=== PATIENT | female | born 1940 | race Caucasian/White ===

== ENCOUNTER 2020-09-25 10:30 | Emergency (ER) | payer MEDICARE, MEDICAID, SELFPAY ==
[2020-09-25 11:39] VITALS: BP 120/54; PULSE 76; RESP 15; TEMP 36.6; O2SAT 99; BMI 29.2
[2020-09-25 11:59] VITALS: BP 120/54; PULSE 76; RESP 15; TEMP 36.6; O2SAT 99
[2020-09-25 12:03] LABS: Glucose Urine UA NEG (NEG); Leukocyte Esterase Urine 3+ (NEG); Nitrite Urine NEG (NEG); Specific Gravity - Urine 1.025 (1.005-1.025); UACC Culture Trigger YES; Urine Blood 3+ (NEG); Urine Ketones NEG (NEG); Urine Protein TRACE MG/DL (NEG-TRACE)
[2020-09-25 12:04] LABS: Appearance Urine CLOUDY; Color Urine YELLOW
--- NOTE | 2020-09-25 12:11 | XR_ITS ---
EXAMINATION: XR CHEST CLINICAL INFORMATION: Acute mental status change COMPARISON: Previous chest x-ray most recent February 2020 TECHNIQUE: Frontal view of the chest was obtained. FINDINGS: The cardiac and mediastinal contours are stable. The lungs are clear. There is no pleural effusion or pneumothorax. There are degenerative changes of the spine. XR/XR chest 1V IMPRESSION: No evidence for acute disease in the chest.
--- NOTE | 2020-09-25 12:11 | ECG_ITS ---
Test Reason : WEAKNESS Blood Pressure : / mmHG Vent. Rate : 065 BPM Atrial Rate : 065 BPM P-R Int : 150 ms QRS Dur : 072 ms QT Int : 418 ms P-R-T Axes : 049 004 037 degrees QTc Int : 434 ms Normal sinus rhythm Normal EKG When compared with ECG of 13-FEB-2020 18:38, No significant change was found Referred By: Layla Dillon Electronically Signed By:WOO BERRY
--- NOTE | 2020-09-25 12:12 | CT_ITS ---
EXAMINATION: CT HEAD WITHOUT CONTRAST CLINICAL INFORMATION: Acute mental status change COMPARISON: Previous head CT scans most recent April 2019 TECHNIQUE: Contiguous axial imaging was performed from the skull base to vertex without intravenous administration of contrast. This CT examination was performed using dose optimization techniques as appropriate, variously including the following: *Automated exposure control *Adjustment of mA and/or kV according to patient size (this includes techniques or standardized protocols for targeted exams where dose is matched to indication/reason for exam; i.e. extremities or head) *Use of iterative reconstruction technique DLP: 672 mGy-cm FINDINGS: There is no evidence of an extra-axial collection. There is no evidence of intra-axial or extra-axial hemorrhage. Ventricles and extra-axial CSF spaces are prominent suggestive of generalized atrophy. There is nonspecific periventricular white matter disease. No mass, mass effect or infarct is seen. There are postsurgical changes to the left maxillary sinus and left nasal cavity. There is cortical thickening of the wall the left maxillary sinus and some adjacent soft tissue thickening. These changes appear similar to 2019 exam. Visualized paranasal sinuses, mastoid air cells and middle ears are otherwise clear. CT/CT head/brain wo con IMPRESSION: No acute findings. Generalized atrophy and nonspecific periventricular white matter disease. Postsurgical change to the left maxillary sinus. Findings are similar to previous exam.
[2020-09-25 12:15] LABS: Bacteria Urine 4+ /LPF; WBC Urine TNTC /HPF (0-4)
--- NOTE | 2020-09-25 12:19 | ED.FEMALEGU ---
HPI - Female Genitourinary General Chief complaint: Urogenital-Female Stated complaint: ?uti Time Seen by Provider: 09/25/20 11:47 Source: family History of Present Illness HPI Narrative: 80-year-old female with a past medical history of Alzheimer's, GERD, HTN, HLD, brought to the ED by daughter for AMS/increased agitation and dysuria x a few days. Per daughter patient is screaming in pain during urination since yesterday, has been aggressive towards family. Denies fever, vomiting/diarrhea, cough. History limited secondary to patient's dementia MD elicited complaint: UTI Related Data Previous Rx's Medication Instructions Recorded cefuroxime axetil 250 mg PO BID 7 Days #14 tab 09/25/20 phenazopyridine [Pyridium] 200 mg PO TID PRN #6 tab 09/25/20 Allergies Allergy/AdvReac Type Severity Reaction Status Date / Time No Known Allergies Allergy Unverified 05/21/20 15:42 [No Known Allergies*] dirt and dust Allergy Unknown Uncoded 02/27/18 00:00 maple trees Allergy Unknown Uncoded 02/27/18 00:00 milk Allergy Unknown Uncoded 02/27/18 00:00 Review of Systems Review of Systems: Constitutional: No Fever, No Chills Respiratory: No Cough Genitourinary:+Dysuria,+ Urgency Neuro: + agitated/AMS ROS limited secondary to patient's dementia Yes Unobtainable due to mental status Neurologic: Reports confusion (Baseline dementia) Psychiatric: Psychiatric: Reports confusion (Baseline dementia) [facility], [facility] Past Medical History Attestation statement: The following information was validated with the patient. Medical History (Updated 09/25/20 @ 14:03 by LUIS CARLOS [place]) Alzheimer disease Dementia GERD (gastroesophageal reflux disease) High cholesterol HTN (hypertension) Social History Social History Alcohol intake: never Smoking Status: Never smoker Use of substances other than those prescribed or required for medical reasons: No Advance Directives: No Advance Directives Information Provided: No Physical Exam Vital Signs: Vital Signs: Last Vital Signs Temp 97.8 F 09/25/20 13:27 Pulse 82 09/25/20 13:27 Resp 18 09/25/20 13:27 BP 130/56 L 09/25/20 13:27 Pulse Ox 100 09/25/20 13:27 Body Mass Index 29.2 Const: General: cooperative, healthy appearing and confusion (Baseline dementia) Orientation/consciousness: confusion (Baseline dementia) Limitations: no limitations HENMT: Head: Yes normal to inspection Ears: hearing grossly normal bilaterally General nose exam: Normal external nose present Face and sinus: Yes normal facial exam Eyes: General: appearance normal, both eyes and all related structures Pupils: Equal, round and reactive pupils present EOM: EOMs intact bilaterally Neck: Neck: Yes normal visual inspection and Yes no meningeal signs Resp: Effort & Inspection: normal respiratory effort Auscultation: clear to auscultation bilaterally, no rales, no rhonchi and no wheezes Cardio: Rate: regular rate Heart sounds: S1 normal heart sound present and S2 normal heart sound present GI: Inspection: Yes normal to inspection Palpation (GI): Soft to palpation, nontender, no guarding and not rigid : General: Yes no CVA tenderness Back/Spine/Pelvis: Back: no CVA tenderness Skin: Rashes: no rashes Wounds: no wounds Neuro: Other: Does not follow all commands (baseline) General: tone normal, no meningeal signs and confusion (Baseline dementia) Cranial nerves: Yes Equal, round and reactive pupils present Gait exam (Neuro): Normal gait present (Ambulates with walker) Extrem: General: Yes normal to inspection Course Course Course Narrative: BUN elevated chronically, labs otherwise unremarkable, influenza/RSV/COVID-19 negative. UA is infected CT head/brain wo con IMPRESSION: No acute findings. Generalized atrophy and nonspecific periventricular white matter disease. Postsurgical change to the left maxillary sinus. Findings are similar to previous exam. XR chest 1V IMPRESSION: No evidence for acute disease in the chest >> results discussed with patient's daughter. Plan to DC home with Ceftin and close PCP follow-up. First dose was given in the ED MDM - Female Genitourinary MDM Narrative Medical decision making narrative: 80-year-old female with a past medical history of Alzheimer's, GERD, HTN, HLD, brought to the ED by daughter for AMS/increased agitation and dysuria x a few days. On exam VSS, NAD/nontoxic appearing. Concern for UTI/other infectious etiology. Rule out ICH/mass. Low concern for severe sepsis. Plan: EKG, labs, UA, CXR, head CT, re-evaluated Lab Data Result diagrams: 09/25/20 12:35 09/25/20 12:35 Labs: Lab Results 09/25/20 09/25/20 09/25/20 Range/Units 11:56 12:35 12:35 WBC 7.2 (4.8-10.8) X10*3/uL RBC 4.85 (4.20-5.50) X10*6/uL Hgb 14.2 (12.0-16.0) g/dl Hct 44.0 (37-47) % MCV 90.7 (80-98) fL MCH 29.3 (27.0-33.0) pg MCHC 32.3 (31.0-35.0) g/dl RDW 13.3 (11.0-16.0) % Plt Count 223 (160-400) X10*3/uL MPV Not Reportable Immature Gran % (Auto) 0.3 (0.0-0.4) % Neut % (Auto) 70.4 (45-73) % Lymph % (Auto) 19.3 L (20-40) % [place] % (Auto) 8.1 (2-11) % Eos % (Auto) 1.3 (0-4) % Baso % (Auto) 0.6 (0-2) % Lymph # (Auto) 1.4 (1.2-4.9) X10*3/uL [place] # (Auto) 0.6 (0.1-1.2) X10*3/uL Eos # (Auto) 0.1 (0.0-0.4) X10*3/uL Baso # (Auto) 0.0 (0.0-0.2) X10*3/uL Abs Immat Gran (auto) 0.02 (0.00-0.03) X10*3/uL Absolute Neuts (auto) 5.1 (2.0-8.3) X10*3/uL Absolute Nucleated RBC 0.000 (0.0-0.012) X10*3/uL Nucleated RBC % (auto) 0.0 (0.0-0.2) /100WBC Smear Tech's Comments VERIFIED Hold Blue Top SEE NOTE Sodium (135-145) mmol/L Potassium (3.3-5.1) mmol/l Chloride (96-108) mmol/L Carbon Dioxide (22-29) mmol/L Anion Gap (12-20) BUN (9-16) mg/dL Creatinine (0.5-1.4) mg/dL Estim Creat Clear Calc Estimated GFR Random Glucose (60-115) mg/dL Calcium (8.4-10.2) mg/dL Magnesium (1.6-2.6) mg/dL Total Bilirubin (0.0-1.0) mg/dL Direct Bilirubin (0.0-0.5) mg/dL AST (5-31) U/L ALT (0-31) U/L Alkaline Phosphatase (39-117) U/L Total Protein (6.5-8.0) g/dL Albumin (3.5-5.0) g/dL Lipase (8-78) U/L Urine Color YELLOW Urine Appearance CLOUDY Urine pH 6.0 (5.0-8.0) Ur Specific [place] 1.025 (1.005-1.025) Urine Protein TRACE (NEG-TRACE) MG/DL Urine Glucose (UA) NEG (NEG) MG/DL Urine Ketones NEG (NEG) MG/DL Urine Blood 3+ H (NEG) Urine Nitrite NEG (NEG) Ur Leukocyte Esterase 3+ H (NEG) Urine RBC 10-14 H (0) /HPF Urine WBC TNTC H (0-4) /HPF Ur Squamous Epith Cells NONE /LPF Urine Bacteria 4+ /LPF Coronavirus (PCR) (Negative) Influenza Type A (PCR) (Negative) Influenza Type B (PCR) (Negative) RSV RNA Qual (PCR) (Negative) 09/25/20 09/25/20 Range/Units 12:35 12:35 WBC (4.8-10.8) X10*3/uL RBC (4.20-5.50) X10*6/uL Hgb (12.0-16.0) g/dl Hct (37-47) % MCV (80-98) fL MCH (27.0-33.0) pg MCHC (31.0-35.0) g/dl RDW (11.0-16.0) % Plt Count (160-400) X10*3/uL MPV Immature Gran % (Auto) (0.0-0.4) % Neut % (Auto) (45-73) % Lymph % (Auto) (20-40) % [place] % (Auto) (2-11) % Eos % (Auto) (0-4) % Baso % (Auto) (0-2) % Lymph # (Auto) (1.2-4.9) X10*3/uL [place] # (Auto) (0.1-1.2) X10*3/uL Eos # (Auto) (0.0-0.4) X10*3/uL Baso # (Auto) (0.0-0.2) X10*3/uL Abs Immat Gran (auto) (0.00-0.03) X10*3/uL Absolute Neuts (auto) (2.0-8.3) X10*3/uL Absolute Nucleated RBC (0.0-0.012) X10*3/uL Nucleated RBC % (auto) (0.0-0.2) /100WBC Smear Tech's Comments Hold Blue Top Sodium 142 (135-145) mmol/L Potassium 4.5 (3.3-5.1) mmol/l Chloride 106 (96-108) mmol/L Carbon Dioxide 25 (22-29) mmol/L Anion Gap 16 (12-20) BUN 26 H (9-16) mg/dL Creatinine 1.08 (0.5-1.4) mg/dL Estim Creat Clear Calc 41.7 Estimated GFR 49 Random Glucose 91 (60-115) mg/dL Calcium 9.3 (8.4-10.2) mg/dL Magnesium 2.2 (1.6-2.6) mg/dL Total Bilirubin 0.4 (0.0-1.0) mg/dL Direct Bilirubin 0.2 (0.0-0.5) mg/dL AST 18 (5-31) U/L ALT 11 (0-31) U/L Alkaline Phosphatase 122 H (39-117) U/L Total Protein 6.6 (6.5-8.0) g/dL Albumin 4.2 (3.5-5.0) g/dL Lipase 39 (8-78) U/L Urine Color Urine Appearance Urine pH (5.0-8.0) Ur Specific [place] (1.005-1.025) Urine Protein (NEG-TRACE) MG/DL Urine Glucose (UA) (NEG) MG/DL Urine Ketones (NEG) MG/DL Urine Blood (NEG) Urine Nitrite (NEG) Ur Leukocyte Esterase (NEG) Urine RBC (0) /HPF Urine WBC (0-4) /HPF Ur Squamous Epith Cells /LPF Urine Bacteria /LPF Coronavirus (PCR) NEGATIVE (Negative) Influenza Type A (PCR) NEGATIVE (Negative) Influenza Type B (PCR) NEGATIVE (Negative) RSV RNA Qual (PCR) NEGATIVE (Negative) Discharge Plan Discharge Clinical Impression: Urinary tract infection Qualifiers: Urinary tract infection type: acute cystitis Hematuria presence: without hematuria Qualified Code(s): N30.00 - Acute cystitis without hematuria Altered mental status Qualifiers: Altered mental status type: unspecified Qualified Code(s): R41.82 - Altered mental status, unspecified Patient Disposition: Home, Self-Care Instructions: Urinary Tract Infection in Older Adults (ED) Additional Instructions: Patient has a urinary tract infection. Ceftin as an antibiotic, take as prescribed Pyridium will help with the urinary discomfort It is crucial that she is staying hydrated at home, and in taking plenty of fluids If her mental status does not improve and or worsens, patient is having high fevers, is not in taking fluids, or develops abdominal pain return to the ED immediately Follow-up with primary care doctor in couple days Prescriptions: New cefuroxime axetil 250 mg tablet 250 mg PO BID 7 Days Qty: 14 RF: 0 phenazopyridine [Pyridium] 200 mg tablet 200 mg PO TID PRN (Reason: pain) Qty: 6 RF: 0 Referrals: Emil Tracy MD [Primary Care Provider] - 2 days
[2020-09-25 12:49] LABS: Imm Gran Abs Auto 0.02 X10*3/uL (0.00-0.03); Imm Gran Pct Auto 0.3 % (0.0-0.4); MANUAL DIFF FLAG SCAN; Monocytes Percent Auto 8.1 % (2-11); PLT CLUMP 1; Red Cell Distribution Width 13.3 % (11.0-16.0); SCAN SMEAR FLAG 1
[2020-09-25 12:51] LABS: Basophils Percent Auto 0.6 % (0-2); Eosinophils Absolute Auto 0.1 X10*3/uL (0.0-0.4); Eosinophils Percent Auto 1.3 % (0-4); Hemoglobin 14.2 g/dl (12.0-16.0); Lymphocytes Absolute Auto 1.4 X10*3/uL (1.2-4.9); Lymphocytes Percent Auto 19.3 % (20-40); Mean Corpuscular HGB Conc 32.3 g/dl (31.0-35.0); Mean Corpuscular Hemoglobin 29.3 pg (27.0-33.0); Mean Corpuscular Volume 90.7 fL (80-98); Monocytes Absolute Auto 0.6 X10*3/uL (0.1-1.2); Neutrophils Absolute Auto 5.1 X10*3/uL (2.0-8.3); Neutrophils Percent Auto 70.4 % (45-73); Red Blood Count 4.85 X10*6/uL (4.20-5.50); White Blood Count 7.2 X10*3/uL (4.8-10.8)
[2020-09-25 13:15] LABS: Alanine Aminotransferase 11 U/L (0-31); Albumin Level 4.2 g/dL (3.5-5.0); Alkaline Phosphatase 122 U/L (39-117); Anion Gap 16 (12-20); Aspartate Amino Transferase 18 U/L (5-31); Bilirubin Direct 0.2 mg/dL (0.0-0.5); Bilirubin Total 0.4 mg/dL (0.0-1.0); Blood Urea Nitrogen 26 mg/dL (9-16); Calcium 9.3 mg/dL (8.4-10.2); Carbon Dioxide 25 mmol/L (22-29); Chloride 106 mmol/L (96-108); Creatinine Clr Calc Pharmacy 41.7; Estimated Glomerular Filt Rate 49; Glucose Random 91 mg/dL (60-115); Lipase 39 U/L (8-78); Magnesium 2.2 mg/dL (1.6-2.6); Potassium 4.5 mmol/l (3.3-5.1); Sodium 142 mmol/L (135-145); Total Protein 6.6 g/dL (6.5-8.0)
[2020-09-25 13:18] LABS: Platelet Count 223 X10*3/uL (160-400); SLIDE REVIEW VERIFIED
[2020-09-25 13:22] LABS: Influenza A PCR NEGATIVE (Negative); Influenza B PCR NEGATIVE (Negative); Resp Syncy Virus RNA Qual PCR NEGATIVE (Negative); SARS COV2 PCR INHOUSE NEGATIVE (Negative)
[2020-09-25 13:27] VITALS: BP 130/56; PULSE 82; RESP 18; TEMP 36.6; O2SAT 100
== END 2020-09-25 14:26 | disposition home or self-care (01) ==
PROVIDERS: Physician Assistant; Emergency Provider Internal Medicine; PCP Internal Medicine
DX: N30.00 Acute cystitis without hematuria (principal); R41.82 Altered mental status, unspecified; Z20.822 Contact with and (suspected) exposure to COVID-19; G30.9 Alzheimer's disease, unspecified; F02.80 Dementia in other diseases classified elsewhere, unspecified severity, without behavioral disturbance, psychotic disturbance, mood disturbance, and anxiety; I10 Essential (primary) hypertension
CPT/HCPCS: 0241U; 36415; 70450; 71045; 80048; 80076; 81001; 81003; 83690; 83735; 85025; 87086; 93005; 99284

== ENCOUNTER 2020-11-06 10:53 | Emergency (ER) | payer MEDICARE, MEDICAID, SELFPAY ==
--- NOTE | ~2020-11-06 | XR_ITS ---
EXAMINATION: XR CHEST CLINICAL INFORMATION: Weakness. COMPARISON: None TECHNIQUE: Frontal view of the chest was obtained. FINDINGS: No significant abnormality is noted involving the heart, lungs, mediastinum, bony thorax or soft tissues. XR/XR chest 1V IMPRESSION: Unremarkable chest examination.
--- NOTE | ~2020-11-06 | CT_ITS ---
EXAMINATION: CT ABDOMEN AND PELVIS WITHOUT CONTRAST CLINICAL INFORMATION: Increasing altered mental status. Abdominal pain. COMPARISON: Ultrasound abdomen 08/01/2019 TECHNIQUE: Multidetector volumetric imaging was performed from the superior aspect of the liver through the pubic symphysis. Sagittal and coronal reformatted images were obtained on the technologist's workstation. This CT examination was performed using dose optimization techniques as appropriate, variously including the following: *Automated exposure control *Adjustment of mA and/or kV according to patient size (this includes techniques or standardized protocols for targeted exams where dose is matched to indication/reason for exam; i.e. extremities or head) *Use of iterative reconstruction technique DLP: 741 mGy-cm FINDINGS: LUNG BASES: Minimal atelectatic changes right lower lobe. Heart size is normal. LIVER, GALLBLADDER, AND BILIARY TREE: The liver is normal in size, shape, and attenuation. No focal hepatic lesion or biliary ductal dilatation is present. The gallbladder is unremarkable with no evidence of radiopaque gallstones, gallbladder wall thickening, or obvious pericholecystic inflammatory changes. PANCREAS: Unremarkable. SPLEEN: Unremarkable. ADRENAL GLANDS: Unremarkable. KIDNEYS AND URETERS: The kidneys are normal in size, shape, and attenuation. No hydronephrosis, hydroureter, or calculi seen. No perinephric stranding. BLADDER: Unremarkable. GASTROINTESTINAL TRACT: There is moderate scattered stool and gas seen throughout the colon without any significant distention. The small bowel loops are normal caliber. No obstruction, free air or free fluid seen. The stomach is distended with recently ingested food. ABDOMINAL WALL: No significant hernia is appreciated. LYMPH NODES: Normal. VASCULAR: Unremarkable. PELVIC VISCERA: The uterus is not visualized. There is no pelvic mass or free fluid. OSSEOUS STRUCTURES: Degenerative disc changes L5-S1, L3-L4 and L2-L3 disc levels. There are sclerotic endplate changes at L2-L3 disc level with ventral spondylosis. Moderate L3-L4 and L4-L5 facet joint arthropathy. CT/CT abdomen pelvis wo con IMPRESSION: No acute intra-abdominal process seen. Moderate constipation without obstruction.
[2020-11-06 11:17] VITALS: BP 126/73; BP 136/62; PULSE 66; PULSE 68; RESP 18; TEMP 36.4; O2SAT 96; O2SAT 98; BMI 31.4
--- NOTE | 2020-11-06 11:58 | ED.FEMALEGU ---
HPI - Female Genitourinary General Chief complaint: Urogenital-Female Stated complaint: UTI symptoms Time Seen by Provider: 11/06/20 11:37 Source: EMS Mode of arrival: EMS Limitations: other (Alzheimer's dementia) History of Present Illness HPI Narrative: This is a 80-year-old female with past medical history that is significant for gastroesophageal reflux disease, hypercholesteremia, hypertension, UTI with behavioral changes and Alzheimer's dementia who presents via EMS from home where she receives around the clock care by her daughter Louisa Licea who is the power of admitted attorneys and healthcare proxy [phone]. Today, per daughter overall she seems to be declining in the sense of her cognition secondary to her Alzheimer's dementia her neurologist thinks that she is at the later stages of the dementia and she has required more research assistant member with ADLs and over the past several days she seems to be having discomfort with urination where she is grimacing and appears uncomfortable when she is assisted to the bathroom and seems to be more lethargic. Per daughter she has history of UTIs with behavior changes in the past which are similar to this. States she was most recently 2 for UTI in this emergency room back in September 25, 2020. Moreover socially daughter feels she is becoming significantly more dependent for her basic ADLs and has had discussions with the primary care doctor and they all feel that she is at a point where she needs to be in a alf. States she is reluctant given but would like to talk to somebody here. MD elicited complaint: UTI Severity: moderate Vaginal discharge: none Vaginal bleeding: none Urinary symptoms: Dysuria Associated symptoms: abdominal pain Sexual activity: No Patient : No Related Data Home Medications Medication Instructions Recorded Confirmed aspirin 81 mg PO DAILY 11/06/20 11/06/20 calcium carbonate-vitamin D3 1 tab PO DAILY 11/06/20 11/06/20 [Calcium 600 + D(3)] docusate sodium 100 mg PO BID 11/06/20 11/06/20 lisinopril 20 mg PO DAILY@1630 11/06/20 11/06/20 lorazepam 0.5 mg PO BEDTIME PRN 11/06/20 11/06/20 lorazepam 0.5 mg PO DAILY PRN 11/06/20 11/06/20 melatonin 20 mg PO BEDTIME PRN 11/06/20 11/06/20 memantine 10 mg PO BID 11/06/20 11/06/20 oxcarbazepine 150 mg PO DAILY 11/06/20 11/06/20 pantoprazole 40 mg PO DAILY@0630 11/06/20 11/06/20 polyethylene glycol 3350 [Miralax] 17 g PO DAILY 11/06/20 11/06/20 pravastatin 40 mg PO BEDTIME 11/06/20 11/06/20 quetiapine [Seroquel] 100 mg PO DAILY PRN 11/06/20 11/06/20 quetiapine [Seroquel] 200 mg PO DAILY@1630 11/06/20 11/06/20 sennosides [senna] 8.6 mg PO BEDTIME 11/06/20 11/06/20 sertraline 100 mg PO DAILY@1630 11/06/20 11/06/20 Previous Rx's Medication Instructions Recorded cephalexin 500 mg PO BID 7 Days #14 cap 11/06/20 phenazopyridine [Pyridium] 100 mg PO TID PRN #6 tab 11/06/20 polyethylene glycol 3350 [Miralax] 17 g PO DAILY PRN #119 g 11/06/20 Allergies Allergy/AdvReac Type Severity Reaction Status Date / Time dirt and dust Allergy Unknown Unknown Uncoded 11/06/20 11:22 maple trees Allergy Unknown Unknown Uncoded 11/06/20 11:22 milk Allergy Unknown Unknown Uncoded 11/06/20 11:22 Review of Systems Review of Systems: Yes Unobtainable due to mental status PMFSH Past Medical History Medical History Alzheimer disease Dementia GERD (gastroesophageal reflux disease) High cholesterol HTN (hypertension) Social History Social History Alcohol intake: never Smoking Status: Unknown if ever smoked Use of substances other than those prescribed or required for medical reasons: No Advance Directives: Yes Advance Directives Information Provided: Yes Advance Directives on File: Yes Advance Directives Date on File: 11/06/20 Physical Exam Vital Signs: Vital Signs: Last Vital Signs Temp 98.2 F 11/06/20 15:57 Pulse 66 11/06/20 15:57 Resp 16 11/06/20 15:57 BP 152/89 H 11/06/20 15:57 Pulse Ox 98 11/06/20 15:57 Body Mass Index 31.4 Reviewed Const: General: No acute distress or intoxicated appearing Nutritional Appearance: obese Orientation/consciousness: oriented to person, No oriented to place, No oriented to time and Other orientation findings (This is baseline) HENMT: Head: Yes normal to inspection Ears: hearing grossly normal bilaterally Eyes: General: appearance normal, both eyes and all related structures Visual Pabon: normal visual pabon by confrontation Neck: Neck: Yes normal visual inspection, No positive Brudzinski's sign, No positive Kernig's sign and No tender Thyroid: Thyroid normal Chest: Chest palpation & inspection: normal inspection of the chest Resp: Effort & Inspection: normal respiratory effort Auscultation: clear to auscultation bilaterally Cardio: Jugular venous distension: no JVD Rhythm: regular rhythm Heart sounds: S1 normal heart sound present and S2 normal heart sound present GI: Other: On exam points to right side abdomen when asked about pain she says no. Inspection: Yes normal to inspection Percussion: Yes normal to percussion Auscultation: normal bowel sounds : General: Yes no CVA tenderness Back/Spine/Pelvis: Back: no CVA tenderness Skin: General skin exam: no rashes or lesions noted Neuro: General: oriented to person, No oriented to place and No oriented to time Extrem: General: Yes normal to inspection Course Course Course Narrative: I spoke at length with the daughter in the way. She is the power of admitted attorneys as well as the healthcare proxy do she did express her end of life care for the mother and after lengthy conversation I did review the MOL[facility] form with her and was filled out. States she is anxious about placing her mother in long-term facility however would like to talk to case management/social media content manager and discuss the oven use. She is agreeable with proceeding with workup to make sure nothing acute is going on in terms of UTI and scanning her abdomen. Reevaluation(s) Reevaluation #1: Labs overall chronic appearing without leukocytosis. UA overtly infected with positive nitrates. Previous urine culture from September [address] of the abdomen and pelvis shows constipation otherwise no acute obstruction or infectious pathology. Abdominal exam remains benign. Hemodynamically remains afebrile and nontoxic-appearing While awaiting case management consult patient receive 1 dose of ceftriaxone Reevaluation #2: Case Management met with the daughter and they have determined that patient has around the clock care at home already and supplementing with VNA services would be the desired plan of care at this time does not want to go to long-term facility. Will start her on MiraLax and cephalexin. Clear return follow-up instructions provided to her daughter. Patient will need assistance with transporting mother back home typically takes EMS. Case Management will coordinate EMS. MDM - Female Genitourinary Differential Diagnosis Differential diagnosis: Likely urinary tract infection; Unlikely bacterial vaginosis, trichomoniasis, cervicitis, ovarian cyst, vaginitis, ruptured ovarian cyst, cyst of Bartholin's gland, cystitis and dysmenorrhea Medical Records Attestation: I reviewed the patient's medical records. Medical records narrative: Record from 09/25/2020 reviewed UTI Urine culture indeterminate with mixed cordelia. Lab Data Attestation: I reviewed the patient's lab results. Result diagrams: 11/06/20 12:28 11/06/20 12:28 Labs: Lab Results 11/06/20 11/06/20 11/06/20 Range/Units 12:28 12:28 12:28 WBC 6.1 (4.8-10.8) X10*3/uL RBC 5.11 (4.20-5.50) X10*6/uL Hgb 15.0 (12.0-16.0) g/dl Hct 46.7 (37-47) % MCV 91.4 (80-98) fL MCH 29.4 (27.0-33.0) pg MCHC 32.1 (31.0-35.0) g/dl RDW 13.0 (11.0-16.0) % Plt Count 234 (160-400) X10*3/uL MPV 10.7 (9.4-12.3) fL Immature Gran % (Auto) 0.3 (0.0-0.4) % Neut % (Auto) 64.9 (45-73) % Lymph % (Auto) 21.7 (20-40) % [place] % (Auto) 10.0 (2-11) % Eos % (Auto) 2.3 (0-4) % Baso % (Auto) 0.8 (0-2) % Lymph # (Auto) 1.3 (1.2-4.9) X10*3/uL [place] # (Auto) 0.6 (0.1-1.2) X10*3/uL Eos # (Auto) 0.1 (0.0-0.4) X10*3/uL Baso # (Auto) 0.1 (0.0-0.2) X10*3/uL Abs Immat Gran (auto) 0.02 (0.00-0.03) X10*3/uL Absolute Neuts (auto) 3.9 (2.0-8.3) X10*3/uL Absolute Nucleated RBC 0.000 (0.0-0.012) X10*3/uL Nucleated RBC % (auto) 0.0 (0.0-0.2) /100WBC Sodium 142 (135-145) mmol/L Potassium 5.0 (3.3-5.1) mmol/L Chloride 105 (96-108) mmol/L Carbon Dioxide 28 (22-29) mmol/L Anion Gap 14 (12-20) BUN 21 H (9-16) mg/dL Creatinine 1.04 (0.5-1.4) mg/dL Estim Creat Clear Calc 41.7 Estimated GFR 51 Random Glucose 98 (60-115) mg/dL Lactic Acid 1.6 (0.5-2.0) mmol/L Calcium 9.4 (8.4-10.2) mg/dL Total Bilirubin < 0.2 (0.0-1.0) mg/dL AST 18 (5-31) U/L ALT 11 (0-31) U/L Alkaline Phosphatase 129 H (39-117) U/L Total Protein 6.7 (6.5-8.0) g/dL Albumin 4.2 (3.5-5.0) g/dL Urine Color Urine Appearance Urine pH (5.0-8.0) Ur Specific [place] (1.005-1.025) Urine Protein (NEG-TRACE) MG/DL Urine Glucose (UA) (NEG) MG/DL Urine Ketones (NEG) MG/DL Urine Blood (NEG) Urine Nitrite (NEG) Ur Leukocyte Esterase (NEG) Urine RBC (0) /HPF Urine WBC (0-4) /HPF Ur Squamous Epith Cells /LPF Urine Bacteria /LPF COVID-19 ([facility]) (Negative) COVID-19 Clin Com 11/06/20 11/06/20 Range/Units 13:07 14:11 WBC (4.8-10.8) X10*3/uL RBC (4.20-5.50) X10*6/uL Hgb (12.0-16.0) g/dl Hct (37-47) % MCV (80-98) fL MCH (27.0-33.0) pg MCHC (31.0-35.0) g/dl RDW (11.0-16.0) % Plt Count (160-400) X10*3/uL MPV (9.4-12.3) fL Immature Gran % (Auto) (0.0-0.4) % Neut % (Auto) (45-73) % Lymph % (Auto) (20-40) % [place] % (Auto) (2-11) % Eos % (Auto) (0-4) % Baso % (Auto) (0-2) % Lymph # (Auto) (1.2-4.9) X10*3/uL [place] # (Auto) (0.1-1.2) X10*3/uL Eos # (Auto) (0.0-0.4) X10*3/uL Baso # (Auto) (0.0-0.2) X10*3/uL Abs Immat Gran (auto) (0.00-0.03) X10*3/uL Absolute Neuts (auto) (2.0-8.3) X10*3/uL Absolute Nucleated RBC (0.0-0.012) X10*3/uL Nucleated RBC % (auto) (0.0-0.2) /100WBC Sodium (135-145) mmol/L Potassium (3.3-5.1) mmol/L Chloride (96-108) mmol/L Carbon Dioxide (22-29) mmol/L Anion Gap (12-20) BUN (9-16) mg/dL Creatinine (0.5-1.4) mg/dL Estim Creat Clear Calc Estimated GFR Random Glucose (60-115) mg/dL Lactic Acid (0.5-2.0) mmol/L Calcium (8.4-10.2) mg/dL Total Bilirubin (0.0-1.0) mg/dL AST (5-31) U/L ALT (0-31) U/L Alkaline Phosphatase (39-117) U/L Total Protein (6.5-8.0) g/dL Albumin (3.5-5.0) g/dL Urine Color ORANGE Urine Appearance CLOUDY Urine pH 5.5 (5.0-8.0) Ur Specific [place] 1.025 (1.005-1.025) Urine Protein TRACE (NEG-TRACE) MG/DL Urine Glucose (UA) NEG (NEG) MG/DL Urine Ketones NEG (NEG) MG/DL Urine Blood 1+ H (NEG) Urine Nitrite POS H (NEG) Ur Leukocyte Esterase 3+ H (NEG) Urine RBC 1-4 (0) /HPF Urine WBC 50-75 H (0-4) /HPF Ur Squamous Epith Cells NONE /LPF Urine Bacteria 4+ /LPF COVID-19 ([facility]) Negative (Negative) COVID-19 Clin Com See Note Discharge Plan Discharge Clinical Impression: Urinary tract infection, Constipation Patient Disposition: Home, Self-Care Instructions: Constipation (ED), Urinary Tract Infection in Older Adults (ED) Additional Instructions: Follow-up with VNA services as discussed with case management team Start the antibiotics for urinary tract infection CT scan also shows mild constipation can start taking stool softener as needed daily Return if any concern or worsening symptoms Thank you Prescriptions: New cephalexin 500 mg capsule 500 mg PO BID 7 Days Qty: 14 RF: 0 polyethylene glycol 3350 [Miralax] 17 gram/dose powder 17 g PO DAILY PRN (Reason: constipation) Qty: 119 RF: 1 phenazopyridine [Pyridium] 100 mg tablet 100 mg PO TID PRN (Reason: pain) Qty: 6 RF: 0 No Action oxcarbazepine 150 mg Tablet 150 mg PO DAILY RF: 0 pravastatin 40 mg Tablet 40 mg PO BEDTIME RF: 0 sennosides [senna] 8.6 mg Tablet 8.6 mg PO BEDTIME RF: 0 lisinopril 20 mg Tablet 20 mg PO DAILY@1630 RF: 0 sertraline 100 mg Tablet 100 mg PO DAILY@1630 RF: 0 aspirin 81 mg Tablet,Delayed Release (Dr/Ec) 81 mg PO DAILY RF: 0 quetiapine [Seroquel] 100 mg Tablet 200 mg PO DAILY@1630 RF: 0 quetiapine [Seroquel] 100 mg Tablet 100 mg PO DAILY PRN (Reason: Agitation) RF: 0 docusate sodium 100 mg Capsule 100 mg PO BID RF: 0 pantoprazole 40 mg Tablet,Delayed Release (Dr/Ec) 40 mg PO DAILY@0630 RF: 0 polyethylene glycol 3350 [Miralax] 17 gram/dose Powder 17 g PO DAILY RF: 0 memantine 10 mg Tablet 10 mg PO BID RF: 0 calcium carbonate-vitamin D3 [Calcium 600 + D(3)] 600 mg(1,500mg) -400 unit Tablet 1 tab PO DAILY RF: 0 lorazepam 1 mg Tablet 0.5 mg PO BEDTIME PRN (Reason: Sleep) RF: 0 lorazepam 1 mg Tablet 0.5 mg PO DAILY PRN (Reason: Agitation) RF: 0 melatonin 10 mg Tablet 20 mg PO BEDTIME PRN (Reason: Sleep) RF: 0 Referrals: [facility] [Outside] - 2 days Interventions: ED Discharge Assessment Last Done: 11/06/20 16:15 Discharge Date/Time: 11/06/20 16:18
[2020-11-06 12:40] LABS: MANUAL DIFF FLAG NO
[2020-11-06 12:50] LABS: Basophils Absolute Auto 0.1 X10*3/uL (0.0-0.2); Basophils Percent Auto 0.8 % (0-2); Eosinophils Absolute Auto 0.1 X10*3/uL (0.0-0.4); Eosinophils Percent Auto 2.3 % (0-4); Hematocrit 46.7 % (37-47); Imm Gran Abs Auto 0.02 X10*3/uL (0.00-0.03); Imm Gran Pct Auto 0.3 % (0.0-0.4); Lymphocytes Absolute Auto 1.3 X10*3/uL (1.2-4.9); Lymphocytes Percent Auto 21.7 % (20-40); Mean Corpuscular HGB Conc 32.1 g/dl (31.0-35.0); Mean Corpuscular Hemoglobin 29.4 pg (27.0-33.0); Mean Corpuscular Volume 91.4 fL (80-98); Mean Platelet Volume 10.7 fL (9.4-12.3); Monocytes Absolute Auto 0.6 X10*3/uL (0.1-1.2); Neutrophils Absolute Auto 3.9 X10*3/uL (2.0-8.3); Neutrophils Percent Auto 64.9 % (45-73); Platelet Count 234 X10*3/uL (160-400); Red Blood Count 5.11 X10*6/uL (4.20-5.50); White Blood Count 6.1 X10*3/uL (4.8-10.8)
[2020-11-06] MEDS: 0.9 % Sodium Chloride 500 ML IV (13:03)
[2020-11-06 13:11] LABS: Lactic Acid 1.6 mmol/L (0.5-2.0)
[2020-11-06 13:13] VITALS: BP 143/66; PULSE 61; RESP 16; O2SAT 97
[2020-11-06 13:14] LABS: Glucose Urine UA NEG (NEG); Leukocyte Esterase Urine 3+ (NEG); Nitrite Urine POS (NEG); PH 5.5 (5.0-8.0); Specific Gravity - Urine 1.025 (1.005-1.025); UACC Culture Trigger YES; Urine Blood 1+ (NEG); Urine Ketones NEG (NEG); Urine Protein TRACE MG/DL (NEG-TRACE)
[2020-11-06 13:19] LABS: Appearance Urine CLOUDY; Color Urine ORANGE
[2020-11-06 13:20] LABS: Alanine Aminotransferase 11 U/L (0-31); Albumin Level 4.2 g/dL (3.5-5.0); Alkaline Phosphatase 129 U/L (39-117); Anion Gap 14 (12-20); Aspartate Amino Transferase 18 U/L (5-31); Bilirubin Total < 0.2 mg/dL (0.0-1.0); Blood Urea Nitrogen 21 mg/dL (9-16); Calcium 9.4 mg/dL (8.4-10.2); Carbon Dioxide 28 mmol/L (22-29); Chloride 105 mmol/L (96-108); Creatinine Clr Calc Pharmacy 41.7; Estimated Glomerular Filt Rate 51; Glucose Random 98 mg/dL (60-115); Sodium 142 mmol/L (135-145); Total Protein 6.7 g/dL (6.5-8.0)
[2020-11-06 13:21] LABS: Bacteria Urine 4+ /LPF; UACC CULT YES; WBC Urine 50-75 /HPF (0-4)
[2020-11-06] MEDS: cefTRIAXone sodium 1 GM in 0.9 % Sodium Chloride 50 ML IV (14:19)
[2020-11-06 14:30] LABS: COVID-19 Test Negative (Negative)
--- NOTE | 2020-11-06 15:27 | MHC.CM.ED ---
Received case management consult from [facility], POLICE LIAISON OFFICER. Per [facility], jorge's HCP/daughter Louisa may be interested in placement. Met with patient's daughter, Louisa. 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 Even though patient technically lives alone, she is never alone. Someone is with her 24 hours a day. PCP verified. HCP verified to be on file. Louisa is not interested in placement for her mother. Louisa is interested in a VNA referral. Louisa [facility] Referral made via allscripts. Face to face completed and signed by Dr Mullins. Patient will need BLS transport at d/c. [facility] booked. Med nec with chart. [facility] POLICE LIAISON OFFICER aware. Continue to monitor for d/c needs
--- NOTE | 2020-11-06 15:39 | PC.NURSE ---
Per case management, plan for pt to return back home at 1600, pt has 24 hour care services at home.
[2020-11-06 15:57] VITALS: BP 152/89; PULSE 66; RESP 16; TEMP 36.8; O2SAT 98
== END 2020-11-06 16:18 | disposition home or self-care (01) ==
PROVIDERS: Nurse Practitioner Primary Care; Emergency Provider Emergency Medicine; PCP Internal Medicine
DX: N39.0 Urinary tract infection, site not specified (principal); K59.00 Constipation, unspecified; Z20.822 Contact with and (suspected) exposure to COVID-19; I10 Essential (primary) hypertension; K21.9 Gastro-esophageal reflux disease without esophagitis; G30.9 Alzheimer's disease, unspecified; F02.81 Dementia in other diseases classified elsewhere, unspecified severity, with behavioral disturbance
CPT/HCPCS: 36415; 71045; 74176; 80053; 81001; 83605; 85025; 87040; 87086; 87088; 87147; 87186; 87205; 87635; 96361; 96365; 99284; 99285; J0696